=== PATIENT | male | born 1950 | race Caucasian/White ===

== ENCOUNTER 2018-08-26 11:03 | Outpatient (CLI) | payer BC, MEDICARE ==
--- NOTE | 2018-08-26 11:17 | RAD ---
Chest 2 views HISTORY: Dyspnea. COMPARISON: 10/25/2015. FINDINGS: Cardiac silhouette and pulmonary vasculature are unremarkable. Mediastinum is midline. Line ar parenchymal opacity now overlies the lateral aspect of the left lung base. No lobar consolidation, pneumothorax, or pleural fluid. Right shoulder prosthesis partially visualized. IMPRESSION: Linear scarring versus atelectasis left lung base. No active cardiopulmonary abnormalities are otherwise demonstrated.
== END 2018-08-26 11:04 | disposition home or self-care (01) ==
LOC: RAD 11:03
PROVIDERS: ATTEND Internal Medicine Critical Care Medicine
DX: R06.00 Dyspnea, unspecified (principal)
CPT/HCPCS: 71046

== ENCOUNTER 2018-11-13 14:00 | Inpatient (IN) | payer BC, MEDICARE ==
[2018-11-13 09:42] VITALS: BMI 31.7
[2018-11-24] MEDS ORDERED: Fentanyl 100 MCG/2 ML VIAL ONE ×4 (09:50→14:58)
[2018-11-24] MEDS ORDERED: Midazolam HCl 2 mg/2 ml Vial ONE (09:50)
[2018-11-24] MEDS ORDERED: ceFAZolin Sodium (SDC) 2 GM/100 ML BAG ONE (09:53)
[2018-11-24] MEDS ORDERED: Tranexamic Acid 1,000 MG/10 ML VIAL ONE ×3 (09:53→15:27)
[2018-11-24] MEDS ORDERED: Sodium Chloride 0.9% 100 ML ONE ×2 (09:53→11:54)
[2018-11-24] MEDS ORDERED: Vancomycin HCl 1.5 GM in Sodium Chloride 0.9% 250 ML 300 ML IVPB SCH ×2 (10:00→22:00)
[2018-11-24] MEDS ORDERED: traMADol HCl 50 MG TAB PO PRN (10:59)
[2018-11-24] MEDS ORDERED: Promethazine HCl 25 MG/ML VIAL IM PRN ×3 (10:59→15:34)
[2018-11-24] MEDS ORDERED: Zolpidem Tartrate 5 MG TAB PO PRN ×2 (10:59→15:34)
[2018-11-24] MEDS ORDERED: Ropivacaine HCl/PF 250 ML in Premix Bag 1 BAG NERVE BLCK SCH (10:59)
[2018-11-24] MEDS ORDERED: HYDROcodone/Acetaminophen 10/325 mg Tablet PO PRN (10:59)
[2018-11-24] MEDS ORDERED: Fentanyl 100 MCG/2 ML VIAL IV PRN (10:59)
[2018-11-24] MEDS ORDERED: Ondansetron PF 4 MG/2 ML Vial IVP PRN ×2 (10:59→15:34)
[2018-11-24] MEDS ORDERED: Bupivacaine PF 0.5% 30 ML VIAL ONE (11:32)
[2018-11-24] MEDS ORDERED: PACU-Morphine 4MG/ML VIAL SLOW IVP PRN (14:26)
[2018-11-24] MEDS ORDERED: Ondansetron HCl/PF 4 MG/2 ML Vial IVP PRN (14:26)
[2018-11-24] MEDS ORDERED: HYDROmorphone 2 MG/ML VIAL SLOW IVP PRN (14:26)
[2018-11-24] MEDS ORDERED: Promethazine HCl 25 MG/ML VIAL SLOW IVP PRN (14:26)
[2018-11-24] MEDS ORDERED: Acetaminophen 325 MG TAB PO PRN (15:34)
[2018-11-24] MEDS ORDERED: diphenhydrAMINE 25 MG CAP PO PRN (15:34)
[2018-11-24] MEDS ORDERED: Tranexamic Acid 1,000 MG in Sodium Chloride 0.9% 100 ML IVPB SCH (15:45)
[2018-11-24] MEDS: Ketorolac Tromethamine 30 MG/ML VIAL IVP SCH ×2 (16:20→18:23)
--- NOTE | 2018-11-24 16:36 | OP ---
DATE OF PROCEDURE: 11/24/2018 PREOPERATIVE DIAGNOSIS: Right knee posttraumatic arthritis. POSTOPERATIVE DIAGNOSIS: Right knee posttraumatic arthritis. PROCEDURE PERFORMED: Right total knee replacement using Arbor[employer] pinless navigation. CUSTOMER SUPPORT SPECIALIST: Mauri Jacobs PA-C ESTIMATED BLOOD LOSS: Minimal. COMPLICATIONS: None. ANESTHESIA: The patient had a general anesthetic as well as a preoperative block. IMPLANTS: Implant to the right knee is a the Triathlon total knee system. The femur was a size 5 cruciate-retaining femur. We used the size 5 primary tibial baseplate. We used a 5 x 13 mm CS X3 tibial poly and an asymmetric 29 x 9 X3 patella. He did go to recovery room in stable condition. INDICATIONS: Mr. Obrien is a 67-year-old male, who years ago had a medial and lateral ligament reconstruction done on his right knee, and at this time, he has a daily pain and has failed nonoperative treatment. At this time, he wished to have the knee replaced. PROCEDURE IN DETAIL: After all appropriate consent forms were explained and signed, the patient was taken back to the operating room and at this time was given general anesthetic. Once the level of anesthesia was appropriate, a well-padded tourniquet was placed on the right leg, and the leg was then prepped and draped in standard surgical fashion. The limb was exsanguinated and tourniquet taken up to 300 mmHg. Midline incision was made with a 10 blade down through the skin and subcutaneous tissue. Bovie electrocautery was used to coagulate any brisk venous bleeding. A new blade was used to make a medial parapatellar arthrotomy. Small subperiosteal release was performed medially and excess fat pad was removed. The knee was flexed up to gain access to the femur. The femur was navigated and distal femoral resection was made. Epicondylar access was used to align our sizing jig and this was pinned in place. We sized our femur to be a 5. 4:1 cutting block was applied and pinned. Anterior and posterior chamfer cuts were then made. We navigated out our proximal tibia and made our proximal tibial resection. Spreaders were used to remove any posterior osteophytes off the back of the femur as well as remaining meniscal tissue. A long alignment nato was then used to achieve correct rotation of our tibial baseplate and a size 5 was chosen. This was pinned in place. We trialed the polyethylene and a 5 x 13 mm CS X3 tibial polyethylene gave us full extension and good stability throughout range of motion. Two towel clips and a saw were used to cut our patella. Three lug nuts were drilled, and an asymmetric 29 x 9 X3 patella was trialed which sat nicely in the trochlear groove. We then drilled our femur and punched our tibia. All components were removed. The knee was thoroughly irrigated and dried. Cement was mixed into the cement gun on the back table. Components were then placed. The knee was held out in full extension until the cement had dried. All excess bone cement was removed. Multiple #2 Vicryl stitches as well as a Quill were used to close our extensor mechanism. 0 Quill followed by a running Monoderm was then used to close the skin. Surgicel glue was then used on the skin. Once this had dried, soft tissue dressing was applied to the limb, tourniquet was let down, and the toes pinked up nicely. The patient was then awakened and taken to the recovery room in stable condition. All counts were correct at the end of the case. The patient did receive preoperative IV antibiotics. The patient was injected with Marcaine for postoperative pain relief. Job ID: [id number] [facility]
[2018-11-24] MEDS: traMADol HCl 50 MG TAB PO PRN (18:24)
[2018-11-24] MEDS: Aspirin 81 mg Enteric Coated Tablet PO SCH (20:40)
[2018-11-24] MEDS: Ferrous Gluconate 324 MG TAB PO SCH (20:40)
[2018-11-24] MEDS: CEFAZOLIN 2 GM in Premix Bag 1 BAG IVPB SCH (20:40)
[2018-11-24] MEDS ORDERED: Budesonide 0.5 MG/2 ML NEB NEB SCH (21:00)
[2018-11-24] MEDS ORDERED: Acetaminophen 650 MG Suppository PR PRN (21:27)
[2018-11-24] MEDS ORDERED: Lorazepam 1 MG TAB PO PRN (21:29)
[2018-11-24 21:53] LABS: #Lymphocytes 0.7 thou/uL (1.20-3.40); #Monocytes 0.4 thou/uL (0.11-0.59); #Neutrophils 8.6 thou/uL (1.40-6.50); %Basophils 0.3 % (0.0-1.0); %Eosinophils 0.1 % (0.0-10.0); %Monocytes 4.3 % (0.0-10.0); %Neutrophils 88.3 % (42.0-75.0); Hemoglobin 14.2 g/dL (14.0-18.0); Mean Corpuscular HGB CONC 33.6 g/dL (32.0-36.0); Mean Corpuscular Hemoglobin 32.8 pg (27.0-31.0); Mean Corpuscular Volume 97.5 fL (78.0-98.0); Mean Platelet Volume 6.8 fL (7.4-10.4); Platelet Count 238 thou/uL (130-400); RBC Distribution Width 11.6 % (11.5-14.5); Red Blood Cell (RBC) Count 4.32 mill/uL (4.70-6.10); White Blood Cell (WBC) Count 9.7 thou/uL (4.8-10.8)
[2018-11-24 22:10] LABS: Anion Gap 14 mmol/L (10-20); BUN (Urea Nitrogen) 15 mg/dL (8.4-25.7); Calc. Creatinine Clearance 110 mL/min (70-130); Calcium 9.1 mg/dL (7.8-10.44); Carbon Dioxide 23 mmol/L (23-31); Chloride 99 mmol/L (98-107); Estimated GFR-MDRD 83; Glucose 156 mg/dL (80-115); Potassium 4.4 mmol/L (3.5-5.1); Sodium 132 mmol/L (136-145)
[2018-11-25] MEDS: traMADol HCl 50 MG TAB PO PRN ×2 (00:21→06:36)
[2018-11-25] MEDS: Ketorolac Tromethamine 30 MG/ML VIAL IVP SCH ×4 (00:22→18:54)
--- NOTE | 2018-11-25 00:52 | CON ---
DATE OF CONSULTATION: 11/24/2018 REASON FOR CONSULTATION: Medical management. HISTORY OF PRESENT ILLNESS: Mr. Oliver is a 67-year-old man, who is status post a right total knee replacement done today. The patient has a history of hypertension, hyperlipidemia, and asthma. He reports having some mild discomfort involving the right knee, but overall it has been tolerable. He has just recently mobilized with physical therapy. The patient states he is feeling well otherwise. Reports having shortness of breath at baseline that responds well to his DuoNeb treatments, which he just received a moment ago. The patient has a cough at baseline and this is unchanged. It is nonproductive. He denies having any recent fevers, chills, or sweats. Denies having any headaches or dizziness. He has had dinner and denies having any nausea or vomiting. No abdominal pain or cramping. He states he drinks alcohol daily, typically 2 to 6 beers per day, and in the past during admissions for previous orthopedic surgeries, he has required beer while in the hospital. Denies having any history of alcohol withdrawal induced seizures. The patient does not feel anxious at the moment. Denies any sweats or tremors. PAST MEDICAL HISTORY: 1. Hyperlipidemia. 2. Hypertension. 3. Asthma. 4. Heavy alcohol use. 5. Obesity. 6. Tobacco use. PAST SURGICAL HISTORY: 1. Bilateral knee surgery, status post right total knee replacement today. 2. Appendectomy. 3. Bilateral hip surgery. 4. Right shoulder surgery. 5. Previous back surgery. SOCIAL HISTORY: The patient chews tobacco. He smokes marijuana. Denies any other illicit drug use. Reports drinking 2 to 6 beers per day. ALLERGIES: NO KNOWN DRUG ALLERGIES. CURRENT MEDICATIONS: 1. Acetaminophen. 2. Amlodipine. 3. Atorvastatin. 4. Budesonide. 5. Fluticasone. 6. Ibuprofen. 7. DuoNebs. 8. Lisinopril/hydrochlorothiazide. 9. Claritin. 10. Singulair. PHYSICAL EXAMINATION: GENERAL: The patient appears well developed, well nourished, and is in no acute distress. VITAL SIGNS: Temperature 97.4, pulse 91, respirations 18, O2 saturation 96% on room air, blood pressure 136/90. HEENT: Normocephalic and atraumatic. Pupils are equal, round, reactive to light. Sclerae without icterus. Oropharynx is clear. NECK: Supple. LUNGS: Clear to auscultation bilaterally. CARDIAC: Regular rate and rhythm. ABDOMEN: Obese, soft, nontender, nondistended. Normoactive bowel sounds present. EXTREMITIES: No lower leg swelling or edema. NEUROLOGIC: Alert and oriented x3. SKIN: Without rash or jaundice. LABORATORY DATA: None. IMPRESSION AND PLAN: Mr. Oliver is a 67-year-old man with a known history of hypertension, hyperlipidemia, and asthma/chronic obstructive pulmonary disease, as well as heavy alcohol use. The patient is status post right total knee replacement and has been referred for medical management. 1. Hypertension. His home medications have been restarted. Continue to monitor blood pressure. We will obtain laboratory studies this evening and repeat in the morning. 2. Hyperlipidemia. Atorvastatin has been restarted. 3. Alcohol abuse. No known history of seizure or withdrawals. We will initiate FREDERICK protocol and order Ativan p.r.n. Continue to monitor. 4. Status post right total knee replacement. Continue as per Dr. Phoenix. Continue PT, OT. Pain under control at this present time. 5. Code status, full. His surrogate decision maker is his , Brenda Oliver. Thank you for the consultation. We will continue to follow this patient with you. Job ID: [id number]
[2018-11-25] MEDS: CEFAZOLIN 2 GM in Premix Bag 1 BAG IVPB SCH (04:21)
[2018-11-25 05:03] LABS: #Lymphocytes 0.7 thou/uL (1.20-3.40); #Monocytes 0.5 thou/uL (0.11-0.59); #Neutrophils 8.7 thou/uL (1.40-6.50); %Eosinophils 0.2 % (0.0-10.0); %Lymphocytes 6.6 % (21.0-51.0); %Monocytes 5.3 % (0.0-10.0); %Neutrophils 87.9 % (42.0-75.0); Hemoglobin 13.5 g/dL (14.0-18.0); Mean Corpuscular Hemoglobin 34.4 pg (27.0-31.0); Mean Corpuscular Volume 98.3 fL (78.0-98.0); Mean Platelet Volume 7.1 fL (7.4-10.4); Platelet Count 249 thou/uL (130-400); RBC Distribution Width 11.5 % (11.5-14.5); Red Blood Cell (RBC) Count 3.91 mill/uL (4.70-6.10); White Blood Cell (WBC) Count 9.9 thou/uL (4.8-10.8)
[2018-11-25 05:18] LABS: Anion Gap 12 mmol/L (10-20); BUN (Urea Nitrogen) 16 mg/dL (8.4-25.7); Calc. Creatinine Clearance 121 mL/min (70-130); Calcium 8.7 mg/dL (7.8-10.44); Carbon Dioxide 22 mmol/L (23-31); Chloride 100 mmol/L (98-107); Estimated GFR-MDRD Greater than 90; Glucose 126 mg/dL (80-115); Potassium 3.8 mmol/L (3.5-5.1); Sodium 130 mmol/L (136-145)
[2018-11-25] MEDS: Budesonide 0.5 MG/2 ML NEB NEB SCH ×2 (06:59→18:45)
--- NOTE | 2018-11-25 08:57 | PDOC.HOSPP ---
- Subjective Encounter Date: 11/25/18 Encounter Time: 08:15 Subjective: Sitting up in bed, waiting for breakfast. Denies shakiness/anxiety. No nausea or vomiting. No CP/SOB/palpitations. Pain 6/10 surgical site, "about like I expected." - Objective Vital Signs & Weight: Vital Signs (12 hours) Temp Pulse Resp BP BP Pulse Ox 11/25/18 07:34 99.1 F 67 16 103/63 92 L 11/25/18 06:57 70 20 97 11/25/18 04:00 97.2 F L 69 16 112/64 96 11/24/18 23:29 88 18 96 Weight Weight 215 lb I&O: 11/24/18 11/25/18 11/26/18 06:59 06:59 06:59 Intake Total 1188 Output Total 650 Balance 538 Result Diagrams: 11/25/18 04:18 11/25/18 04:18 ROS - Medication Medications: Active Medications Generic Name Dose Route Start Last Admin Trade Name Freq PRN Reason Stop Dose Admin Albuterol/Ipratropium 3 ml 11/25/18 01:00 11/25/18 06:57 Duoneb NEB 3 ml [id number] FUNMILAYO Administration Aspirin 81 mg 11/24/18 21:00 11/24/18 20:40 Ecotrin PO 81 mg BID FUNMILAYO Administration Budesonide 0.5 mg 11/25/18 06:30 11/25/18 06:59 Pulmicort Neb Solution NEB 0.5 mg BID-RT FUNMILAYO Administration Ferrous Gluconate 324 mg 11/24/18 21:00 11/24/18 20:40 Fergon PO 324 mg BID FUMNILAYO Administration Ketorolac Tromethamine 15 mg 11/24/18 12:00 11/25/18 06:37 Toradol IVP 11/26/18 06:01 15 mg Q6HR FUNMILAYO Administration Sodium Chloride 10 ml 11/24/18 21:00 11/24/18 20:32 Flush - Normal Saline IVF Not Given Q12HR FUNMILAYO Tramadol HCl 100 mg 11/24/18 10:59 11/25/18 06:36 Ultram PO 100 mg Q6H PRN Administration Moderate Pain 4-6 - Exam awake alert Eye: PERRL ENT: moist mucosa Neck: supple Heart: RRR Respiratory: CTAB, no wheezes Gastrointestinal: soft, non-tender Gastrointestinal - other findings: obese Extremeties - other findings: Mild edema surgical site Neurological: no focal deficits Musculoskeletal: normal strength Psychiatric: A&O x 3 Hosp A/P (1) Postoperative pain of knee Code(s): G89.18 - OTHER ACUTE POSTPROCEDURAL PAIN; M25.569 - PAIN IN UNSPECIFIED KNEE Status: Acute (2) Hyponatremia Code(s): E87.1 - HYPO-OSMOLALITY AND HYPONATREMIA Status: Acute (3) Hypertension Code(s): I10 - ESSENTIAL (PRIMARY) HYPERTENSION Status: Acute (4) Alcohol use Code(s): Z72.89 - OTHER PROBLEMS RELATED TO LIFESTYLE Status: Acute (5) Asthma Code(s): J45.909 - UNSPECIFIED ASTHMA, UNCOMPLICATED Status: Acute - Plan plan discussed w/ family, PT/OT, respiratory therapy, incentive spirometry Pulm - RAD stable; nebs prn, continue budesonide ETOH - thiamine/folate/MVI per routine, alcohol w/d protocol; monitor Mild hyponatriemia - asymptomatic Cards - BP controlled. Routine postop pain control/PT/OT, ASA
[2018-11-25] MEDS: Senokot S 8.6-50 MG TAB PO SCH ×2 (09:21→21:11)
[2018-11-25] MEDS: HYDROcodone/Acetaminophen 10/325 mg Tablet PO PRN ×3 (09:21→21:26)
[2018-11-25] MEDS: Amlodipine 5 MG TAB PO SCH (09:22)
[2018-11-25] MEDS: Montelukast Sodium 10 mg Tablet PO SCH (09:23)
[2018-11-25] MEDS: Aspirin 81 mg Enteric Coated Tablet PO SCH ×2 (09:23→21:11)
[2018-11-25] MEDS: Loratadine 10 MG TAB PO SCH (09:24)
[2018-11-25] MEDS: Ferrous Gluconate 324 MG TAB PO SCH ×2 (09:24→21:11)
[2018-11-25] MEDS: Multivitamin W/ Minerals 1 TAB PO SCH (09:24)
[2018-11-25] MEDS: Lisinopril/Hydrochlorothiazide 20 mg/12.5 mg Tablet PO SCH (09:24)
[2018-11-25] MEDS: Fluticasone Propionate Nasal Spray 16 gm Bottle NASAL SCH (09:25)
[2018-11-25] MEDS: Atorvastatin Calcium 20 MG TAB PO SCH (09:25)
--- NOTE | 2018-11-25 14:19 | PRG ---
DATE OF SERVICE: 11/25/2018 SUBJECTIVE: Camille is a 67-year-old male, who is postop day 1 from a right total knee arthroplasty. He is doing very well. He is quite comfortable this morning and he has no complaints. He has had several other joints replaced and understands the process very well. OBJECTIVE: VITAL SIGNS: Temperature 99.1, pulse 80, respiratory rate 20, and blood pressure 103/63. GENERAL: He is alert and oriented to person, place, time, and situation, grossly nonfocal, responsive and appropriate with examiner. His incision is clean and closed without erythema. No strikethrough. He is neurovascularly intact in the right lower extremity. LABORATORY DATA: Hemoglobin and hematocrit 13.5 and 38.4. IMPRESSION: A 67-year-old male postop day 1 right total knee arthroplasty, doing well. PLAN: Continue current care. Probable discharge home tomorrow. Job ID: [id number]
--- NOTE | 2018-11-25 16:10 | CON ---
DATE OF CONSULTATION: 11/25/2018 CONSULTING PHYSICIAN: Dr. Phoenix. REASON FOR CONSULTATION: Shortness of breath. HISTORY OF PRESENT ILLNESS: The patient is a 67-year-old male, who follows with Dr. Suarez for asthma. He has some difficulty in the perioperative period yesterday, but is now back to his baseline, has no complaints. At home, he takes DuoNeb, budesonide, and Singulair. He does not smoke and has never smoked tobacco in the past. PAST MEDICAL HISTORY: 1. Hyperlipidemia. 2. Hypertension. 3. Asthma. 4. Heavy alcohol use. 5. Obesity. PAST SURGICAL HISTORY: 1. Bilateral knee surgery. 2. Hip replacement. 3. Shoulder surgery. SOCIAL HISTORY: Chews tobacco. Apparently smokes marijuana. Does not use any other illicit drugs. Drinks 2 to 6 beers a day. ALLERGIES: NONE. MEDICATIONS: Prior to admission reviewed. See summary section in chart. REVIEW OF SYSTEMS: Twelve-point review of systems is otherwise negative. PHYSICAL EXAMINATION: VITAL SIGNS: Temperature 99.1, pulse 80, blood pressure 103/63, and O2 saturation 92% on room air. GENERAL: He is awake and alert, in no distress. HEENT: Unremarkable. NECK: No adenopathy, JVD, or bruits. LUNGS: Clear without wheezing or rhonchi. CARDIAC: S1 and S2. Regular without murmur. ABDOMEN: Soft and nontender. EXTREMITIES: No clubbing, cyanosis, or edema. ASSESSMENT: 1. Post right knee replacement. 2. Chronic obstructive pulmonary disease/asthma, which is clinically stable on current medications. RECOMMENDATIONS: Continue present medications. Nothing further needed at this time. Job ID: [id number]
[2018-11-26] MEDS: Ketorolac Tromethamine 30 MG/ML VIAL IVP SCH ×2 (00:11→05:18)
[2018-11-26 03:46] LABS: #Eosinphils 0.1 thou/uL (0.0-0.7); #Lymphocytes 1.5 thou/uL (1.20-3.40); #Monocytes 1.1 thou/uL (0.11-0.59); #Neutrophils 5.3 thou/uL (1.40-6.50); %Basophils 0.3 % (0.0-1.0); %Eosinophils 0.7 % (0.0-10.0); %Lymphocytes 18.5 % (21.0-51.0); %Monocytes 13.3 % (0.0-10.0); %Neutrophils 67.1 % (42.0-75.0); Hemoglobin 12.7 g/dL (14.0-18.0); Mean Corpuscular HGB CONC 33.8 g/dL (32.0-36.0); Mean Corpuscular Hemoglobin 33.4 pg (27.0-31.0); Mean Corpuscular Volume 98.7 fL (78.0-98.0); Mean Platelet Volume 6.6 fL (7.4-10.4); Platelet Count 220 thou/uL (130-400); RBC Distribution Width 11.5 % (11.5-14.5); Red Blood Cell (RBC) Count 3.79 mill/uL (4.70-6.10)
[2018-11-26 04:07] LABS: Anion Gap 12 mmol/L (10-20); BUN (Urea Nitrogen) 16 mg/dL (8.4-25.7); Calc. Creatinine Clearance 129 mL/min (70-130); Calcium 9.1 mg/dL (7.8-10.44); Carbon Dioxide 24 mmol/L (23-31); Chloride 103 mmol/L (98-107); Estimated GFR-MDRD Greater than 90; Glucose 94 mg/dL (80-115); Potassium 3.8 mmol/L (3.5-5.1); Sodium 135 mmol/L (136-145)
[2018-11-26] MEDS: Budesonide 0.5 MG/2 ML NEB NEB SCH (06:18)
[2018-11-26 07:32] VITALS: BP 126/76; TEMP 98.5
[2018-11-26] MEDS: Montelukast Sodium 10 mg Tablet PO SCH (08:42)
[2018-11-26] MEDS: Senokot S 8.6-50 MG TAB PO SCH (08:42)
[2018-11-26] MEDS: Lisinopril/Hydrochlorothiazide 20 mg/12.5 mg Tablet PO SCH (08:42)
[2018-11-26] MEDS: Aspirin 81 mg Enteric Coated Tablet PO SCH (08:42)
[2018-11-26] MEDS: Atorvastatin Calcium 20 MG TAB PO SCH (08:43)
[2018-11-26] MEDS: Multivitamin W/ Minerals 1 TAB PO SCH (08:43)
[2018-11-26] MEDS: Amlodipine 5 MG TAB PO SCH (08:43)
[2018-11-26] MEDS: Ferrous Gluconate 324 MG TAB PO SCH (08:43)
[2018-11-26] MEDS: Loratadine 10 MG TAB PO SCH (08:43)
[2018-11-26] MEDS: Fluticasone Propionate Nasal Spray 16 gm Bottle NASAL SCH (08:45)
--- NOTE | 2018-11-26 08:45 | PDOC.HOSPP ---
- Subjective Encounter Date: 11/26/18 Encounter Time: 08:43 Subjective: No acute overnight events. Right thigh swelling present. No further nausea, tolerating po. BM this morning. - Objective Vital Signs & Weight: Vital Signs (12 hours) Temp Pulse Resp BP BP Pulse Ox 11/26/18 07:28 98.5 F 61 16 126/76 97 11/26/18 06:18 64 16 98 11/26/18 04:28 98.4 F 65 16 110/67 96 11/26/18 00:32 62 16 99 11/26/18 00:00 98 F 64 16 143/86 H 96 Weight Admit Weight 215 lb Weight 215 lb I&O: 11/25/18 11/26/18 11/27/18 06:59 06:59 06:59 Intake Total 1188 1730 Output Total 650 Balance 538 1730 Result Diagrams: 11/26/18 03:29 11/26/18 03:29 ROS - Medication Medications: Active Medications Generic Name Dose Route Start Last Admin Trade Name Freq PRN Reason Stop Dose Admin Hydrocodone Bitart/Acetaminophen 1 tab 11/24/18 10:59 11/25/18 21:26 [place] 10/325 PO 1 tab Q4H PRN Administration Pain (1-3) Albuterol/Ipratropium 3 ml 11/25/18 01:00 11/26/18 06:22 Duoneb NEB 3 ml [id number] FUNMILAYO Administration Amlodipine Besylate 5 mg 11/25/18 09:00 11/25/18 09:22 Norvasc PO 5 mg DAILY FUNMILAYO Administration Aspirin 81 mg 11/24/18 21:00 11/25/18 21:11 Ecotrin PO 81 mg BID FUNMILAYO Administration Atorvastatin Calcium 20 mg 11/25/18 09:00 11/25/18 09:25 Lipitor PO 20 mg DAILY FUNMILAYO Administration Budesonide 0.5 mg 11/25/18 06:30 11/26/18 06:18 Pulmicort Neb Solution NEB 0.5 mg BID-RT FUNMILAYO Administration Ferrous Gluconate 324 mg 11/24/18 21:00 11/25/18 21:11 Fergon PO 324 mg BID FUNMILAYO Administration Fluticasone Propionate 0 gm 11/25/18 09:00 11/25/18 09:25 Flonase Nasal [place] NASAL Not Given DAILY FUNMILAYO Lisinopril/HCTZ 2 tab 11/25/18 09:00 11/25/18 09:24 Prinizide 20-12.5 PO 2 tab DAILY FUNMILAYO Administration Ropivacaine 250 ml/ Device 250 mls @ 0 mls/hr 11/24/18 10:59 11/25/18 15:52 NERVE BLCK 250 mls INF FUNMILAYO Administration As Directed Iron/Minerals/Multivitamins 1 tab 11/25/18 09:00 11/25/18 09:24 Theragran M PO 1 tab DAILY FUNMILAYO Administration Loratadine 10 mg 11/25/18 09:00 11/25/18 09:24 Claritin PO 10 mg DAILY FUNMILAYO Administration Montelukast Sodium 10 mg 11/25/18 09:00 11/25/18 09:23 Singulair PO 10 mg DAILY FUNMILAYO Administration Senna/Docusate Sodium 2 tab 11/25/18 09:00 11/25/18 21:11 Senokot S PO 2 tab BID FUNMILAYO Administration Sodium Chloride 10 ml 11/24/18 21:00 11/25/18 21:11 Flush - Normal Saline IVF 10 ml Q12HR FUNMILAYO Administration Tramadol HCl 100 mg 11/24/18 10:59 11/25/18 06:36 Ultram PO 100 mg Q6H PRN Administration Moderate Pain 4-6 - Exam NAD Eye: PERRL ENT: moist mucosa Neck: supple Heart: RRR Respiratory: CTAB Gastrointestinal: soft, non-tender Extremeties - other findings: Some right upper leg edema/postop edema right knee present Neurological: no new deficit Psychiatric: A&O x 3 Hosp A/P (1) Postoperative pain of knee Code(s): G89.18 - OTHER ACUTE POSTPROCEDURAL PAIN; M25.569 - PAIN IN UNSPECIFIED KNEE Status: Acute (2) Hyponatremia Code(s): E87.1 - HYPO-OSMOLALITY AND HYPONATREMIA Status: Acute (3) Hypertension Code(s): I10 - ESSENTIAL (PRIMARY) HYPERTENSION Status: Acute (4) Alcohol use Code(s): Z72.89 - OTHER PROBLEMS RELATED TO LIFESTYLE Status: Acute (5) Asthma Code(s): J45.909 - UNSPECIFIED ASTHMA, UNCOMPLICATED Status: Acute - Plan plan discussed w/ family, PT/OT, incentive spirometry, out of bed/ambulate Pulm - RAD stable; nebs prn, continue budesonide ETOH - thiamine/folate/MVI per routine, alcohol w/d protocol; monitor - no signs of alcohol withdrawl/tremors Mild hyponatriemia - resolved, NA 135 today. Cards - BP controlled. Routine postop pain control/PT/OT, ASA Anticipate discharge today. Advised continued stool softeners/laxatives.
[2018-11-26] MEDS ORDERED: Folic Acid 1 MG TAB PO SCH (09:00)
[2018-11-26] MEDS ORDERED: Thiamine 100 MG TAB PO SCH (09:00)
[2018-11-26] MEDS: traMADol HCl 50 MG TAB PO PRN (12:03)
== END 2018-11-26 12:20 | disposition home or self-care (01) | DRG 470 ==
LOC: SJJU 11-24 09:34 → SURG A 11-24 16:47
PROVIDERS: ADMIT Orthopaedic Surgery; ATTEND Orthopaedic Surgery
PROC: 0SRC0J9 Replacement of Right Knee Joint with Synthetic Substitute, Cemented, Open Approach (ICD-10-PCS; principal; 2018-11-24)
DX: M17.31 Unilateral post-traumatic osteoarthritis, right knee (principal); E87.1 Hypo-osmolality and hyponatremia; I10 Essential (primary) hypertension; J44.9 Chronic obstructive pulmonary disease, unspecified; J30.2 Other seasonal allergic rhinitis; Z96.641 Presence of right artificial hip joint; Z96.652 Presence of left artificial knee joint; Z96.642 Presence of left artificial hip joint; E78.5 Hyperlipidemia, unspecified; E66.9 Obesity, unspecified; F12.90 Cannabis use, unspecified, uncomplicated; F17.220 Nicotine dependence, chewing tobacco, uncomplicated; F10.10 Alcohol abuse, uncomplicated; Z79.899 Other long term (current) drug therapy; Z91.048 Other nonmedicinal substance allergy status; Z68.31 Body mass index [BMI] 31.0-31.9, adult; Z79.51 Long term (current) use of inhaled steroids; Z79.1 Long term (current) use of non-steroidal anti-inflammatories (NSAID)
CPT/HCPCS: 36415; 80048; 85025; 94640; C1713; C1776; J0690; J1885; J2250; J2795; J3010; J3370; J3490; J7050; J7620; J7626; S0020

== ENCOUNTER 2018-11-26 21:42 | Emergency (ER) | payer BC, MEDICARE ==
[2018-11-26 22:26] LABS: #Eosinphils 0.1 thou/uL (0.0-0.7); #Neutrophils 8.3 thou/uL (1.40-6.50); %Basophils 0.2 % (0.0-1.0); %Eosinophils 0.9 % (0.0-10.0); %Lymphocytes 9.2 % (21.0-51.0); %Monocytes 9.9 % (0.0-10.0); %Neutrophils 79.9 % (42.0-75.0); Hemoglobin 13.7 g/dL (14.0-18.0); Mean Corpuscular HGB CONC 34.6 g/dL (32.0-36.0); Mean Corpuscular Hemoglobin 34.2 pg (27.0-31.0); Mean Corpuscular Volume 98.9 fL (78.0-98.0); Mean Platelet Volume 6.8 fL (7.4-10.4); Platelet Count 277 thou/uL (130-400); RBC Distribution Width 11.5 % (11.5-14.5); Red Blood Cell (RBC) Count 4.02 mill/uL (4.70-6.10); White Blood Cell (WBC) Count 10.4 thou/uL (4.8-10.8)
[2018-11-26 22:48] LABS: ALT (SGPT) 32 U/L (8-55); AST (SGOT) 41 U/L (5-34); Albumin 4.2 g/dL (3.4-4.8); Alkaline Phosphatase 47 U/L (40-150); Anion Gap 14 mmol/L (10-20); BUN (Urea Nitrogen) 15 mg/dL (8.4-25.7); Bilirubin, Total 0.9 mg/dL (0.2-1.2); Calc. Creatinine Clearance 0 mL/min (70-130); Calcium 9.5 mg/dL (7.8-10.44); Carbon Dioxide 26 mmol/L (23-31); Chloride 98 mmol/L (98-107); Estimated GFR-MDRD 81; Globulin 3.1 g/dL (2.4-3.5); Glucose 98 mg/dL (80-115); Potassium 3.8 mmol/L (3.5-5.1); Protein, Total 7.3 g/dL (5.8-8.1); Sodium 134 mmol/L (136-145)
--- NOTE | 2018-11-26 22:53 | RAD ---
Chest AP view INDICATION: History of knee surgery with syncopal episode COMPARISON: August 26, 2018 FINDINGS: Lungs:There is stable scarring versus volume loss within the lingula Cardiac silhouette pulmonary vasculature:There is stable cardiomegaly. Pulmonary vasculature appears within normal limits. Pleural spaces:No pleural effusion or pneumothorax is demonstrated. Upper abdomen:No abnormality seen. Osseous structures: There is stable right total shoulder replacement. There is scattered degenerative and osteoarthritic change present. Additional findings:None. IMPRESSION: No acute cardiopulmonary abnormality. Stable cardiomegaly. Stable scarring within the jonathon gula.
--- NOTE | 2018-11-26 23:03 | ULT ---
EXAM: RIGHT LOWER EXTREMITY DOPPLER VENOUS ULTRASOUND PROVIDED CLINICAL HISTORY: Right total knee replacement on November 24, 2018 with right lower extremity redness edema and pain TECHNIQUE: Grayscale and color Doppler sonography with spectral analysis was performed of the right common femor al, femoral, popliteal, posterior tibial, greater saphenous and profunda femoral veins. FINDINGS: There is normal compression, flow and augmentation seen within the deep venous structures o f the right lower extremity. IMPRESSION: No sonographic evidence for right lower extremity deep venous thrombosis.
--- NOTE | 2018-11-29 11:07 | EKG ---
Test Reason : Blood Pressure : / mmHG Vent. Rate : 077 BPM Atrial Rate : 077 BPM P-R Int : 180 ms QRS Dur : 102 ms QT Int : 364 ms P-R-T Axes : 053 -12 043 degrees QTc Int : 411 ms Normal sinus rhythm Cannot rule out Anterior infarct , age undetermined Abnormal ECG Confirmed by MARIO GRIFFIN ([id number]), editor department RAHEEL ELI ([id number]) on 11/29/2018 11:07:04 AM Referred By: Confirmed By:MARIO GRIFFIN
== END 2018-11-27 00:02 | disposition home or self-care (01) ==
LOC: ERS 21:42
DX: R55 Syncope and collapse (principal); M25.561 Pain in right knee; E78.5 Hyperlipidemia, unspecified; E78.00 Pure hypercholesterolemia, unspecified; I10 Essential (primary) hypertension; J45.909 Unspecified asthma, uncomplicated; F17.220 Nicotine dependence, chewing tobacco, uncomplicated; Z79.899 Other long term (current) drug therapy
CPT/HCPCS: 36415; 71045; 84484; 85379; 93005; 94760

== ENCOUNTER 2019-01-09 14:45 | Outpatient (CLI) | payer BC, MEDICARE ==
--- NOTE | 2019-01-09 15:09 | RAD ---
Exam: Chest 2 views HISTORY:Short of breath Comparison: 04/14/2013 FINDINGS: Lungs: Linear density at left lung base suggests subsegmental atelectasis Cardiac silhouette:Mild enlargement of the cardiac silhouette Pulmonary vessels: No significant congestion. Pleural Spaces: Clear Pneumothorax: None Osseous abnormalities: None of acuity. IMPRESSION: Linear density of left lower lung zone favoring subsegmental atelectasis. Mild enlargement of cardiac silhouette.
[2019-01-09 15:29] LABS: #Eosinphils 0.1 thou/uL (0.0-0.7); #Lymphocytes 1.7 thou/uL (1.20-3.40); #Monocytes 0.8 thou/uL (0.11-0.59); #Neutrophils 7.7 thou/uL (1.40-6.50); %Basophils 0.3 % (0.0-1.0); %Eosinophils 0.9 % (0.0-10.0); %Lymphocytes 16.3 % (21.0-51.0); %Monocytes 7.6 % (0.0-10.0); %Neutrophils 74.9 % (42.0-75.0); Hemoglobin 12.4 g/dL (14.0-18.0); Mean Corpuscular HGB CONC 35.2 g/dL (32.0-36.0); Mean Corpuscular Hemoglobin 32.8 pg (27.0-31.0); Mean Corpuscular Volume 93.4 fL (78.0-98.0); Mean Platelet Volume 6.2 fL (7.4-10.4); Platelet Count 256 thou/uL (130-400); RBC Distribution Width 12.2 % (11.5-14.5); Red Blood Cell (RBC) Count 3.77 mill/uL (4.70-6.10); White Blood Cell (WBC) Count 10.3 thou/uL (4.8-10.8)
[2019-01-09 15:45] LABS: ALT (SGPT) 36 U/L (8-55); AST (SGOT) 33 U/L (5-34); Alkaline Phosphatase 54 U/L (40-110); Anion Gap 16 mmol/L (10-20); BUN (Urea Nitrogen) 15 mg/dL (8.4-25.7); Bilirubin, Total 0.5 mg/dL (0.2-1.2); CRP (Inflammatory) 11.38 mg/dL (= or < 0.5); Calc. Creatinine Clearance 0 mL/min (70-130); Calcium 9.6 mg/dL (7.8-10.44); Carbon Dioxide 24 mmol/L (23-31); Chloride 99 mmol/L (98-107); Estimated GFR-MDRD Greater than 90; Glucose 114 mg/dL (80-115); Potassium 3.7 mmol/L (3.5-5.1); Sodium 135 mmol/L (136-145)
[2019-01-09 18:16] LABS: Hemoglobin A1c 5.2 % (4.0-6.0)
[2019-01-14 15:21] LABS: ANA Symphony (Qualitative) Negative (Negative); ANA Symphony (Quantitative) 0.3 Ratio (< 0.7 Negative); dsDNA IgG Antibody 2.2 IU/mL (<10 Negative)
== END 2019-01-09 14:46 | disposition home or self-care (01) ==
LOC: SCSRAD 14:45
PROVIDERS: ATTEND Family Medicine
DX: R50.9 Fever, unspecified (principal); N39.0 Urinary tract infection, site not specified; L30.9 Dermatitis, unspecified; R91.8 Other nonspecific abnormal finding of lung field; I51.7 Cardiomegaly
CPT/HCPCS: 36415; 71046; 80053; 83036; 85025; 85652; 86038; 86140; 86225; 87040; 87086

== ENCOUNTER 2019-01-16 12:36 | Outpatient (CLI) | payer BC, MEDICARE ==
--- NOTE | 2019-01-16 13:43 | CT ---
EXAM: CT chest, abdomen, and pelvis with IV contrast: HISTORY: Recurrent urinary tract infection. Low-grade fever and groin pain as well as associated back pain. COMPARISON: CT abdomen and pelvis on 12/14/2014 FINDINGS: CT THORAX: Lungs: No consolidation, suspicious pulmonary nodule, or mass. Mild subsegmental atelectasis is seen at each lung base. Pleura: No pleural effusion. Lymph nodes: No lymphadenopathy. Mediastinum: No acute process of the mediastinal structures. Chest wall: No abnormalities CT ABDOMEN AND PELVIS: Liver: Within normal limits. Gallbladder: Within normal limits. \ Pancreas: Within normal limits. Spleen: Within normal limits. Adrenal glands: Within normal limits. Kidneys: A fluid attenuation hypodense cystic lesion is seen in the midportion right kidney measuring 2.1 cm with 2 closely adjacent fluid attenuation cystic lesions seen in the inferior pole left kidney each measuring approximately 2.2 cm compatible with cysts. Tiny subcentimeter too small to jenifer racterize hypodense lesions are seen in each kidney. There is no hydronephrosis or solid renal mass seen. Urinary Bladder: Decompressed, but the jackson of the urinary bladder are thickened. No significant per ivesicular inflammatory changes are seen. Reproductive organs: Within normal limits for patient's age. Bowel: Colonic diverticulosis is seen. The loops of small bowel are normal in caliber. Adenopathy:No lymphadenopathy within the abdomen or pelvis. Peritoneum: No free fluid or fluid collection is seen. No free intraperitoneal gas is identified. Abdominal wall: No abnormalities seen. Osseous structures: Bilateral total hip prostheses are seen. There is mild left convex curvature of t he thoracolumbar spine. Multilevel degenerative changes are seen throughout the spine. There is trace anterolisthesis of L4 on L5 with slight retrolisthesis of L2 on L3. A few scattered remote bila teral rib fractures are identified. A right shoulder prosthesis is present with prominent glenohumeral osteoarthropathy noted on the left with severe joint space narrowing. IMPRESSION: 1. Thickening of the jackson of the urinary bladder which may be attributable to cystitis. Correlation with urinalysis is recommended. 2. There is otherwise no acute finding seen within the chest, and, or pelvis. 3. Bilateral renal cysts with subcentimeter too small to characterize hypodense lesions in each kidne y. 4. Colonic diverticulosis. 5. Prominent degenerative changes throughout the spine. There is also severe left glenohumeral osteoa rthropathy.
--- NOTE | 2019-01-16 14:00 | ULT ---
ULTRASOUND WITH DOPPLER DUPLEX VENOUS LOWER EXTREMITY BILATERAL: CPT: 56608 ICD-10-PCS: [id number] INDICATION: Bilateral leg pain. TECHNIQUE: Color flow Doppler, spectral waveform analysis of pulsed Doppler, and ricks-scale imaging with bailey krystyna and augmentation, were used to evaluate the bilateral common femoral, femoral, popliteal, rider ticket worker ior tibial, and superficial femoral, veins; and the proximal portions of the profunda femoral and gre ater saphenous, veins. FINDINGS: There is appropriate compressibility and flow within the imaged deep vein system of each lower extrem ity without evidence of thrombus. IMPRESSION: No deep venous thrombosis. POS: [facility]
== END 2019-01-16 12:37 | disposition home or self-care (01) ==
LOC: SCSCT 12:36
PROVIDERS: ATTEND Family Medicine
DX: M79.604 Pain in right leg (principal); M79.605 Pain in left leg; R53.83 Other fatigue; R53.81 Other malaise; R50.9 Fever, unspecified; K57.30 Diverticulosis of large intestine without perforation or abscess without bleeding; N32.89 Other specified disorders of bladder; N28.1 Cyst of kidney, acquired; M47.9 Spondylosis, unspecified; M19.012 Primary osteoarthritis, left shoulder; Z96.651 Presence of right artificial knee joint
CPT/HCPCS: 71260; 74177; 93970

== ENCOUNTER 2019-05-15 09:22 | Outpatient (CLI) | payer BC, MEDICARE ==
--- NOTE | 2019-05-15 10:35 | MRI ---
MRI CERVICAL SPINE WITHOUT CONTRAST: HISTORY: Cervical pain. Pain radiates to both shoulders. Numbness.. COMPARISON: 08/06/2016. FINDINGS: Appropriate T1 marrow signal intensity of the cervical vertebrae. Cervical spine vertebral body heig ht is maintained. No fracture. No significant STIR hyperintensity to suggest vertebral body edema or ligamentous injury. Spondylolisthesis: C2-C3: 3.3 mm of anterolisthesis. C3-C4: 5.8 mm of anterolisthesis. C7-T1: 3.5 mm retrolisthesis. Visualized brain parenchyma, cervicomedullary junction, cervical cord and the upper thoracic cord hav e a normal size and signal intensity. C2-C3: No significant central canal stenosis. Mild to moderate bilateral foraminal narrowing due to u ncovertebral and facet hypertrophy. C3-C4: Broad-based disc-osteophyte complex with a small central disc herniation does deform the theca l sac. Subarachnoid space is maintained. Mild central canal stenosis. Moderate bilateral foraminal narrowing due to uncovertebral and facet hypertrophy. C4-C5: Broad-based disc-osteophyte complex abuts the thecal sac. Subarachnoid space Is maintained. M ild central canal stenosis. Moderate to severe right neural foramina narrowing due to uncovertebral and facet hypertrophy. Moderate left foraminal narrowing due to uncovertebral hypertrophy. C5-C6: Broad-based disc-osteophyte complex abuts the thecal sac. Subarachnoid space is still maintain ed. Minimal flattening of the cervical cord. Mild central canal stenosis. Mild to moderate bilateral foraminal narrowing due to uncovertebral hypertrophy. C6-C7: Broad-based disc-osteophyte complex with a central disc herniation. There is deformity the cer vical cord. Subarachnoid space is maintained. Mild to moderate central canal stenosis. No cord hyperintensity. Mild bilateral foraminal narrowing due to uncovertebral hypertrophy. C7-T1: Central/left paracentral disc herniation. Mass effect upon the left hemicord. Moderate central canal stenosis. Mild bilateral foraminal narrowing. IMPRESSION: Degenerative changes of the cervical spine as detailed above. Transcribed Date/Time: 05/15/2019 11:55 AM
[2019-05-15 12:04] LABS: ALT (SGPT) 41 U/L (8-55); AST (SGOT) 37 U/L (5-34); Albumin 4.5 g/dL (3.4-4.8); Alkaline Phosphatase 60 U/L (40-110); Anion Gap 13 mmol/L (10-20); BUN (Urea Nitrogen) 11 mg/dL (8.4-25.7); Bilirubin, Total 0.9 mg/dL (0.2-1.2); Calc. Creatinine Clearance 0 mL/min (70-130); Calcium 10.1 mg/dL (7.8-10.44); Carbon Dioxide 26 mmol/L (23-31); Cardiac Risk 1.9 (Less than 4.5); Chloride 100 mmol/L (98-107); Cholesterol 130 mg/dl (< 200 Desired); Estimated GFR-MDRD Greater than 90; Globulin 3.6 g/dL (2.4-3.5); Glucose 91 mg/dL (80-115); HDL Cholesterol 69 mg/dL (>60 Neg Risk); LDL Cholesterol, Calculated 41 mg/dL; Protein, Total 8.1 g/dL (5.8-8.1); Sodium 135 mmol/L (136-145); Triglycerides 98 mg/dL (Less than 150)
== END 2019-05-15 09:23 | disposition home or self-care (01) ==
LOC: SCSMRI 09:22
PROVIDERS: ATTEND Family Medicine
DX: M54.2 Cervicalgia (principal); M47.812 Spondylosis without myelopathy or radiculopathy, cervical region; E78.2 Mixed hyperlipidemia
CPT/HCPCS: 36415; 72141; 80053; 80061

== ENCOUNTER 2023-09-24 15:23 | Outpatient (CLI) | payer MEDICARE | END 2023-09-24 15:24 | disposition home or self-care (01) | LOC: BICCT 15:23 | PROVIDERS: ATTEND Orthopaedic Surgery | DX: T84.84XA Pain due to internal orthopedic prosthetic devices, implants and grafts, initial encounter (principal); T84.028A Dislocation of other internal joint prosthesis, initial encounter; M25.811 Other specified joint disorders, right shoulder; M25.411 Effusion, right shoulder ==